=== PATIENT | female | born 1990 | race Caucasian/White ===

== ENCOUNTER 2020-04-19 16:54 | Inpatient (IN) | payer OTHER ==
[~2020-04-19] VITALS: Ht 162.6 cm; Wt 113.4 kg
[~2020-04-19 16:54] MED LIST: PROZAC20 MG PO
[2020-04-19 17:33] LABS: HEMOGLOBIN 12.7 gm/dl (12.3-15.3); RED BLOOD COUNT 4.37 M/UL (4.00-5.10); WHITE BLOOD COUNT 11.6 K/UL (4.5-11.0)
[2020-04-20] MEDS ORDERED: IBUPROFEN600 MG PO (18:05)
[2020-04-20] MEDS ORDERED: DOCUSATE SODIU250 MG PO (18:05)
[2020-04-20] MEDS ORDERED: HYDROCODON-ACE1 EAC4 PO (18:05)
[2020-04-21 06:04] LABS: HEMOGLOBIN 11.6 gm/dl (12.3-15.3)
== END 2020-04-22 15:18 | disposition home or self-care (01) | DRG 788 ==
LOC: GENOP 16:54 → OB 17:04
PROVIDERS: Obstetrics & Gynecology; ADMIT Obstetrics & Gynecology
PROC: 0U7C7ZZ Dilation of Cervix, Via Natural or Artificial Opening (ICD-10-PCS; 2020-04-19)
PROC: 0DNW0ZZ Release Peritoneum, Open Approach (ICD-10-PCS; 2020-04-20)
PROC: 10907ZC Drainage of Amniotic Fluid, Therapeutic from Products of Conception, Via Natural or Artificial Opening (ICD-10-PCS; 2020-04-20)
PROC: 10D00Z1 Extraction of Products of Conception, Low, Open Approach (ICD-10-PCS; principal; 2020-04-20 18:14)
DX: O13.4 Gestational [pregnancy-induced] hypertension without significant proteinuria, complicating childbirth (principal); O62.1 Secondary uterine inertia; N73.6 Female pelvic peritoneal adhesions (postinfective); O34.211 Maternal care for low transverse scar from previous cesarean delivery; N85.8 Other specified noninflammatory disorders of uterus; O24.429 Gestational diabetes mellitus in childbirth, unspecified control; Z90.49 Acquired absence of other specified parts of digestive tract; Z37.0 Single live birth; Z3A.37 37 weeks gestation of pregnancy; Z85.038 Personal history of other malignant neoplasm of large intestine
CPT/HCPCS: 36415; 81001; 82800; 82962; 85014; 85018; 85025; 85461; 86850; 86900; 86901; C9113; J0690; J2210; J2274; J2405; J2550; J2590; J2790; J7030; J7120